=== PATIENT | female | born 1995 | race Caucasian/White ===

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

== ENCOUNTER → 2017-01-07 | Outpatient (CLI) | payer OTHER, BC | END | disposition home or self-care (01) | LOC: ORTHO 12:54 | DX: S52.135D Nondisplaced fracture of neck of left radius, subsequent encounter for closed fracture with routine healing (principal); X58.XXXD Exposure to other specified factors, subsequent encounter ==

== ENCOUNTER → 2017-02-20 | Outpatient (CLI) | payer OTHER, BC | END | disposition home or self-care (01) | LOC: ORTHO 01:01 | DX: S52.92XD Unspecified fracture of left forearm, subsequent encounter for closed fracture with routine healing (principal); X58.XXXD Exposure to other specified factors, subsequent encounter ==

== ENCOUNTER → 2017-05-16 | Outpatient (CLI) | payer OTHER, BC | LOC: US 09:58 | DX: E04.9 Nontoxic goiter, unspecified (principal); E03.9 Hypothyroidism, unspecified; R53.83 Other fatigue ==

== ENCOUNTER 2017-12-14 09:08 | Emergency (ER) | payer OTHER, BC ==
[~2017-12-14] VITALS: Ht 175.2 cm; Wt 113.4 kg
[2017-12-14] MEDS ORDERED: CYCLOBENZAPRINE5 M3 PO (10:11)
[2017-12-14] MEDS ORDERED: Motrin,Rufen800 MG PO (10:11)
== END 2017-12-14 10:25 | disposition home or self-care (01) ==
LOC: ED 09:08
DX: M62.838 Other muscle spasm (principal); M54.2 Cervicalgia; Z79.899 Other long term (current) drug therapy

== ENCOUNTER 2018-12-01 07:14 | Emergency (ER) | payer OTHER, BC ==
[~2018-12-01] VITALS: Ht 175.2 cm; Wt 113.4 kg
[~2018-12-01 07:14] MED LIST changes: +CYCLOBENZAPRINE5 M3 PO; +Motrin,Rufen800 MG PO
[2018-12-01] MEDS ORDERED: TYLENOL325 M1 PO (09:04)
[2018-12-01] MEDS ORDERED: NAPROSYN500 MG PO (09:04)
== END 2018-12-01 09:07 | disposition home or self-care (01) ==
LOC: ED 07:14
DX: S56.912A Strain of unspecified muscles, fascia and tendons at forearm level, left arm, initial encounter (principal); Z79.899 Other long term (current) drug therapy; X50.0XXA Overexertion from strenuous movement or load, initial encounter; Y93.B3 Activity, free weights; Y92.39 Other specified sports and athletic area as the place of occurrence of the external cause; Y99.8 Other external cause status

== ENCOUNTER → 2019-05-26 | Outpatient (CLI) | payer OTHER ==
[~2019-05-26] MED LIST changes: +NAPROSYN500 MG PO; +TYLENOL325 M1 PO
== END | disposition home or self-care (01) ==
LOC: MRI 09:00
DX: G47.00 Insomnia, unspecified (principal)

== ENCOUNTER 2019-07-27 01:34 | Emergency (ER) | payer OTHER ==
[~2019-07-27] VITALS: Ht 175.2 cm; Wt 122.5 kg
[2019-07-27] MEDS ORDERED: AUGMENTIN 875875 MG PO (01:54)
== END 2019-07-27 02:17 | disposition home or self-care (01) ==
LOC: ED 01:34
DX: H66.91 Otitis media, unspecified, right ear (principal); Z79.899 Other long term (current) drug therapy; Z79.2 Long term (current) use of antibiotics

== ENCOUNTER → 2019-12-10 | Outpatient (CLI) | payer OTHER ==
[~2019-12-10] MED LIST changes: +AUGMENTIN 875875 MG PO; +COLACE100 MG PO; +ESCITALOPRAM OX10 MG PO; +NORCO 5-325 TA1 EACH PO; +ONE-DAILY MULT1 EAC1 PO; +PEPCID40 MG PO; +PROTONIX40 MG PO
== END | disposition home or self-care (01) ==
LOC: COVID19 00:10
DX: Z01.818 Encounter for other preprocedural examination (principal); Z11.59 Encounter for screening for other viral diseases

== ENCOUNTER → 2019-12-16 | Day surgery (SDC) | payer OTHER ==
[2019-12-10 13:06] VITALS: BP 147/87
[~2019-12-16] VITALS: Ht 175.2 cm; Wt 122.5 kg
[2019-12-16 07:45] VITALS: BP 113/71
[2019-12-16 09:40] VITALS: BP 131/84
[2019-12-16 09:55] VITALS: BP 132/83
[2019-12-16 10:10] VITALS: BP 136/83
[2019-12-16 10:25] VITALS: BP 129/76
[2019-12-16 10:40] VITALS: BP 118/88
== END | disposition home or self-care (01) ==
LOC: SDC 12-10 13:15
DX: L05.91 Pilonidal cyst without abscess (principal); K21.9 Gastro-esophageal reflux disease without esophagitis; Z98.890 Other specified postprocedural states; Z79.899 Other long term (current) drug therapy

== ENCOUNTER 2021-05-17 23:52 | Emergency (ER) | payer OTHER ==
[2021-05-18 00:59] LABS: BASO % 0.3 % (0.0-1.0); EOS % 0.3 % (1.0-4.0); HEMATOCRIT 41.4 % (37.0-47.0); LYMPH # 1.1 10*3/uL (1.3-4.4); LYMPH % 10.1 % (27.0-41.0); MEAN CORPUSCULAR HGB 28.6 pg (27.0-31.0); MEAN CORPUSCULAR HGB CONC 31.4 g/dl (33.0-37.0); MEAN PLATELET VOLUME 10.5 fl (9.6-12.3); MONO # 0.4 10*3/uL (0.1-1.0); MONO % 3.2 % (3.0-9.0); NEUT # 9.4 10*3/uL (2.3-7.9); NEUT % 85.7 % (47.0-73.0); PLATELET COUNT AUTOMATED 274 10*3/uL (130-400); RED BLOOD COUNT 4.55 10*6/uL (4.10-5.10); RED CELL DISTRI WIDTH 13.2 % (0-14.5); WHITE BLOOD COUNT 10.9 10*3/uL (4.8-10.8)
[2021-05-18 01:16] LABS: ALBUMIN 3.1 gm/dl (3.1-4.5); ALKALINE PHOSPHATASE 79 U/L (45-117); BUN 11 mg/dl (7-24); CHLORIDE 106 mmol/L (98-107); CREATININE 0.67 mg/dL (0.55-1.02); LIPASE 82 U/L (73-393); SGOT/AST 26 IU/L (3-35); SGPT/ALT 25 U/L (12-78); SODIUM 137 mmol/L (136-145); TOTAL PROTEIN 7.3 gm/dL (6.4-8.2)
[2021-05-18 01:44] LABS: BILIRUBIN Negative (Negative); BLOOD Negative (Negative); CLARITY Cloudy (Clear); COLOR Dark Yellow (Yellow); GLUCOSE Negative (Negative); KETONE 3+ (Negative); LEUKO ESTERASE Trace (Negative); NITRITE Negative (Negative); PH 5.5 (4.5-8.0); SPECIFIC GRAVITY >= 1.030 (1.001-1.030)
[2021-05-18 01:51] LABS: BACTERIA 3+; MUCOUS 1+
[2021-05-18] MEDS ORDERED: CIPRO500 MG PO (04:07)
[2021-05-18] MEDS ORDERED: ZOFRAN4 MG PO (04:07)
== END 2021-05-18 04:35 | disposition home or self-care (01) ==
LOC: ED 23:52
PROVIDERS: Emergency Medicine
DX: K52.9 Noninfective gastroenteritis and colitis, unspecified (principal); N39.0 Urinary tract infection, site not specified; Z88.2 Allergy status to sulfonamides; Z79.899 Other long term (current) drug therapy

== ENCOUNTER 2021-10-17 13:04 | Emergency (ER) | payer OTHER ==
[~2021-10-17] VITALS: Wt 136.1 kg
[~2021-10-17 13:04] MED LIST changes: +CIPRO500 MG PO
[2021-10-17 13:45] LABS: BASO % 0.3 % (0.0-1.0); EOS # 0.2 10*3/uL (0.0-0.4); EOS % 2.3 % (1.0-4.0); HEMATOCRIT 41.9 % (37.0-47.0); LYMPH # 0.8 10*3/uL (1.3-4.4); LYMPH % 8.9 % (27.0-41.0); MEAN CORPUSCULAR HGB 28.6 pg (27.0-31.0); MEAN CORPUSCULAR HGB CONC 32.5 g/dl (33.0-37.0); MEAN PLATELET VOLUME 10.5 fl (9.6-12.3); MONO # 0.6 10*3/uL (0.1-1.0); MONO % 6.3 % (3.0-9.0); NEUT # 7.4 10*3/uL (2.3-7.9); NEUT % 81.9 % (47.0-73.0); PLATELET COUNT AUTOMATED 292 10*3/uL (130-400); RED BLOOD COUNT 4.76 10*6/uL (4.10-5.10); WHITE BLOOD COUNT 9.1 10*3/uL (4.8-10.8)
[2021-10-17 14:00] LABS: ALKALINE PHOSPHATASE 166 U/L (45-117); BUN 8 mg/dl (7-24); CHLORIDE 102 mmol/L (98-107); CREATININE 0.69 mg/dL (0.55-1.02); SGOT/AST 182 IU/L (3-35); SGPT/ALT 153 U/L (12-78); SODIUM 135 mmol/L (136-145); TOTAL PROTEIN 7.5 gm/dL (6.4-8.2)
[2021-10-17] MEDS ORDERED: PREDNISONE20 M1 PO (18:38)
[2021-10-17] MEDS ORDERED: CLINDAMYCIN HC300 MG PO (18:38)
== END 2021-10-17 19:00 | disposition home or self-care (01) ==
LOC: ED 13:04
PROVIDERS: Physician Assistant
DX: R21 Rash and other nonspecific skin eruption (principal); T36.0X5A Adverse effect of penicillins, initial encounter; J02.9 Acute pharyngitis, unspecified; Z79.899 Other long term (current) drug therapy; Z88.2 Allergy status to sulfonamides; Z88.1 Allergy status to other antibiotic agents; Y92.89 Other specified places as the place of occurrence of the external cause

== ENCOUNTER → 2022-07-16 | Day surgery (SDC) | payer OTHER ==
[~2022-07-16] MED LIST changes: +CLINDAMYCIN HC300 MG PO; +OFLOXACIN OTIC5 ML OT; +PREDNISONE20 M1 PO; -SYNTHROID0.05 MG PO; +Synthroid,Levo88 MCG PO; +VITAMIN D250 MCG PO
[2022-07-16 09:35] VITALS: BP 121/70
[2022-07-16 11:37] VITALS: BP 125/76
[2022-07-16 11:48] VITALS: BP 130/70
[2022-07-16 12:05] VITALS: BP 128/73
[2022-07-16 12:20] VITALS: BP 132/87
[2022-07-16 12:34] VITALS: BP 128/77
== END | disposition home or self-care (01) ==
LOC: SDC 07-12 14:45
PROVIDERS: ATTEND Specialist
DX: H65.493 Other chronic nonsuppurative otitis media, bilateral (principal); T70.0XXA Otitic barotrauma, initial encounter; K21.9 Gastro-esophageal reflux disease without esophagitis; F41.9 Anxiety disorder, unspecified; E03.9 Hypothyroidism, unspecified